=== PATIENT | female | born 1995 | race Caucasian/White ===

== ENCOUNTER 2016-11-03 14:23 | Outpatient (CLI) | payer BC ==
[2016-11-03] MEDS ORDERED: Acetaminophen 500 MG Tab PO ONE (16:55)
== END 2016-11-03 18:35 | disposition home or self-care (01) ==
LOC: MW.OBCHECK 14:23 → MW.OB 14:27 → MW.OBCHECK 18:35
PROVIDERS: ATTEND Obstetrics & Gynecology
DX: O36.8190 Decreased fetal movements, unspecified trimester, not applicable or unspecified (principal); R10.9 Unspecified abdominal pain; Z3A.00 Weeks of gestation of pregnancy not specified; Z37.9 Outcome of delivery, unspecified
CPT/HCPCS: 59025; 81003; A9270

== ENCOUNTER → 2016-11-09 | Outpatient (CLI) | payer BC | LOC: MW.CHOBGYN 15:15 | PROVIDERS: ATTEND Obstetrics & Gynecology | DX: O09.30 Supervision of pregnancy with insufficient antenatal care, unspecified trimester (principal) | CPT/HCPCS: 81003; 87081 ==

== ENCOUNTER 2016-11-10 21:57 | Outpatient (CLI) | payer BC | END 2016-11-11 00:46 | disposition home or self-care (01) | LOC: MW.OBCHECK 21:57 → MW.OB 22:05 → MW.OBCHECK 11-11 00:46 | PROVIDERS: ATTEND Obstetrics & Gynecology | DX: Z34.03 Encounter for supervision of normal first pregnancy, third trimester (principal); R03.0 Elevated blood-pressure reading, without diagnosis of hypertension; H53.8 Other visual disturbances; R11.2 Nausea with vomiting, unspecified; N94.89 Other specified conditions associated with female genital organs and menstrual cycle; Z3A.35 35 weeks gestation of pregnancy | CPT/HCPCS: 59025; 81003 ==

== ENCOUNTER → 2016-11-17 | Outpatient (CLI) | payer BC | LOC: MW.CHOBGYN 15:28 | PROVIDERS: ATTEND Nurse Practitioner Women's Health | DX: Z34.90 Encounter for supervision of normal pregnancy, unspecified, unspecified trimester (principal) | CPT/HCPCS: 81003 ==

== ENCOUNTER 2016-11-21 16:33 | Outpatient (CLI) | payer BC | END 2016-11-21 17:50 | disposition home or self-care (01) | LOC: MW.OBCHECK 16:33 → MW.OB 16:53 → MW.OBCHECK 17:50 | PROVIDERS: ATTEND Obstetrics & Gynecology | DX: Z34.90 Encounter for supervision of normal pregnancy, unspecified, unspecified trimester (principal) | CPT/HCPCS: 36415; 59025; 81003; 85025 ==

== ENCOUNTER → 2016-11-21 | Outpatient (CLI) | payer BC | END | disposition home or self-care (01) | LOC: MW.CHOBGYN 15:47 | PROVIDERS: ATTEND Obstetrics & Gynecology | DX: Z34.90 Encounter for supervision of normal pregnancy, unspecified, unspecified trimester (principal) | CPT/HCPCS: 81003 ==

== ENCOUNTER 2016-11-28 17:11 | Outpatient (CLI) | payer BC ==
[2016-11-28 18:12] LABS: CHLORIDE,CL 111 mmol/L (98-110); SODIUM,NA 137 mmol/L (136-146)
== END 2016-11-28 20:18 | disposition home or self-care (01) ==
LOC: MW.OBCHECK 17:11 → MW.OB 17:13 → MW.OBCHECK 20:18
PROVIDERS: ATTEND Obstetrics & Gynecology
DX: O16.9 Unspecified maternal hypertension, unspecified trimester (principal)
CPT/HCPCS: 36415; 59025; 80048; 80076; 81001; 85025

== ENCOUNTER 2016-12-01 16:50 | Inpatient (IN) | payer BC ==
[2016-12-01] MEDS ORDERED: Ampicillin 2 GM in Sodium Chloride 0.9% 100 ML IV ONE (17:22)
[2016-12-01] MEDS ORDERED: Methylergonovine 0.2 MG/1 ML Amp IM PRN (17:22)
[2016-12-01] MEDS ORDERED: Terbutaline 1 MG/ML SDV SUBCUT PRN (17:22)
[2016-12-01] MEDS ORDERED: Sodium Chloride 0.9% 10 ML Syringe FLUSH PRN (17:22)
[2016-12-01] MEDS ORDERED: Sodium Chloride 0.9% 2.5 ML Syringe FLUSH PRN (17:22)
[2016-12-01] MEDS ORDERED: Water For Irrigation,Sterile 1,000 ML Container IRR PRN (17:22)
[2016-12-01] MEDS ORDERED: Nalbuphine 10 MG/1 ML Vial IVPUSH PRN (17:22)
[2016-12-01] MEDS ORDERED: Carboprost Tromethamine 250 MCG/1 ML Amp IM PRN (17:22)
[2016-12-01] MEDS ORDERED: Misoprostol 200 MCG Tab PO PRN (17:22)
[2016-12-01] MEDS ORDERED: Butorphanol 1 MG/ML SDV IVPUSH PRN (17:22)
[2016-12-01] MEDS ORDERED: Misoprostol 25 MCG (1/4 of 100 MCG) Tab VAG PRN (17:22)
[2016-12-01] MEDS ORDERED: Lidocaine 1% 50 ML MDV INJECT PRN (17:22)
[2016-12-01] MEDS ORDERED: Oxytocin/Lactated Ringers 30 UNIT/500 ML BAG IV SCH (17:30)
[2016-12-01] MEDS: Lactated Ringers 1,000 ML IV SCH (18:08)
[2016-12-01] MEDS: Misoprostol 25 MCG (1/4 of 100 MCG) Tab PO SCH (18:22)
--- NOTE | 2016-12-01 19:01 | PCM.LDHP ---
L&D History of Present Illness - General Date of Service: 12/01/16 Admit Problem/Dx: Patient Status Order with Admit Dx/Problem 12/01/16 17:23 Patient Status [ADT] Routine Admission Diagnosis/Problem Admission Diagnosis/Problem 12/01/16 18:52 20 yo G1 at 39wks with an EDC of 12/08/2016, O+, RI, GBS pos. IOL due to elevated BP. 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: - Past Surgical History HEENT Surgical History: Reports: None Social & Family History - Family History Cardiac: Reports: Hypertension OBGYN: Reports: Other Endocrine/Metabolic Family History: diabetes, unsure of type - Tobacco Use Smoking Status *Q: Never Smoker Second Hand Smoke Exposure: No - Caffeine Use Caffeine Use: Reports: None - Recreational Drug Use Recreational Drug Use: No H&P Review of Systems - Review of Systems: Review Of Systems: See Below General: Reports: no symptoms HEENT: Reports: no symptoms Pulmonary: Reports: No Symptoms Cardiovascular: Reports: no symptoms Gastrointestinal: Reports: No symptoms Genitourinary: Reports: no symptoms Musculoskeletal: Reports: no symptoms Skin: Reports: no symptoms Psychiatric: Reports: no symptoms Neurological: Reports: No Symptoms Hematologic/Lymphatic: Reports: no symptoms Immunologic: Reports: no symptoms L&D Exam - Exam Exam: See Below - Vital Signs Weight: 104.326 kg - OB Specific movement: active Estimated Weight: 3900 - Exam General: alert, oriented, cooperative, mild distress HEENT: Hearing intact Lungs: Normal respiratory effort Abdomen: soft Rectal Exam: Deferred Genitourinary: Normal external exam Back Exam: full range of motion Skin: intact Psychiatric: alert, normal mood - Patient Data Lab Results last 24 hrs: Laboratory Results - last 24 hr 12/01/16 Range/Units 17:56 WBC 10.26 (4.0-11.0) K/uL RBC 4.57 (4.30-5.90) M/uL Hgb 11.1 L (12.0-16.0) g/dL Hct 34.8 L (36.0-46.0) % MCV 76.1 L (80.0-98.0) fL MCH 24.3 L (27.0-32.0) pg MCHC 31.9 (31.0-37.0) g/dL RDW Std Deviation 40.8 (28.0-62.0) fl RDW Coeff of Verito 15 (11.0-15.0) % Plt Count 262 (150-400) K/uL MPV 10.30 (7.40-12.00) fL Nucleated RBC % 0.0 /100WBC Nucleated RBCs # 0 K/uL Result Diagrams: 12/01/16 17:56 - Problem List (1) Supervision of normal IUP (intrauterine ) in primigravida SNOMED Code(s): 97792402, 268441952, 477179370, 842661635 ICD Code: Z34.00 - ENCNTR FOR SUPRVSN OF NORMAL FIRST , UNSP TRIMESTER Status: Acute Current Visit: Yes Qualifiers: Trimester: third trimester Qualified Code(s): Z34.03 - Encounter for supervision of normal first , third trimester (2) Gestational hypertension SNOMED Code(s): 84389983 ICD Code: O13.9 - GESTATIONAL HTN W/O SIGNIFICANT PROTEINURIA, UNSP TRIMESTER Status: Acute Priority: High Current Visit: Yes Qualifiers: Trimester: third trimester Qualified Code(s): O13.3 - Gestational [ -induced] hypertension without significant proteinuria, third trimester Problem List Initiated/Reviewed/Updated: Yes Orders Last 24hrs: Active Orders 24 hr Category Date Time Status Patient Status [ADT] Routine ADT 12/01/16 17:23 Active Communication Order [RC] ASDIRECTED Care 12/01/16 17:23 Active Communication Order [RC] ASDIRECTED Care 12/01/16 17:23 Active Communication Order [RC] ASDIRECTED Care 12/01/16 17:23 Active Heart Tones [RC] CONTINUOUS Care 12/01/16 17:23 Active Non Stress Test [RC] PER UNIT ROUTINE Care 12/01/16 17:23 Active May Shower [RC] ASDIRECTED Care 12/01/16 17:23 Active Notify Provider [RC] PRN Care 12/01/16 17:23 Active Notify Provider [RC] PRN Care 12/01/16 17:23 Active Notify Provider [RC] PRN Care 12/01/16 17:23 Active Notify Provider [RC] STAT Care 12/01/16 17:23 Active Oxygen Therapy [RC] ASDIRECTED Care 12/01/16 17:23 Active Up ad Katia [RC] ASDIRECTED Care 12/01/16 17:23 Active Vaginal Exam [RC] PRN Care 12/01/16 17:23 Active Vital Signs [RC] PER UNIT ROUTINE Care 12/01/16 17:23 Active Clear Liquid Diet [DIET] Diet 12/01/16 Dinner Active TYPE AND SCREEN [BBK] Routine Lab 12/01/16 17:56 Received Ampicillin 1 gm Med 12/01/16 22:00 Active Sodium Chloride 0.9% [Normal Saline] 50 ml IV Q4H Butorphanol [Stadol] Med 12/01/16 17:22 Active 1 mg IVPUSH Q1H PRN Carboprost Tromethamine [Hemabate DS] Med 12/01/16 17:22 Active 250 mcg IM ASDIRECTED PRN Lactated Ringers [Ringers, Lactated] 1,000 ml Med 12/01/16 17:30 Active IV ASDIRECTED Lidocaine 1% [Xylocaine 1%] Med 12/01/16 17:22 Active 50 ml INJECT .ONCE PRN Methylergonovine [Methergine] Med 12/01/16 17:22 Active 0.2 mg IM ASDIRECTED PRN Misoprostol [Cytotec] Med 12/01/16 17:22 Active 200 mcg PO .ONCE PRN Misoprostol [Cytotec] Med 12/01/16 17:30 Active 25 mcg PO Q4H Misoprostol [Cytotec] Med 12/01/16 17:22 Active 25 mcg VAG Q4H PRN Nalbuphine [Nubain] Med 12/01/16 17:22 Active 10 mg IVPUSH Q1H PRN Sodium Chloride 0.9% [Saline Flush] Med 12/01/16 17:22 Active 10 ml FLUSH ASDIRECTED PRN Sodium Chloride 0.9% [Saline Flush] Med 12/01/16 17:22 Active 2.5 ml FLUSH ASDIRECTED PRN Terbutaline [Brethine] Med 12/01/16 17:22 Active 0.25 mg SUBCUT ASDIRECTED PRN Water For Irrigation,Sterile [Sterile Water for Med 12/01/16 17:22 Active Irrigation] 1,000 ml IRR ASDIRECTED PRN Scalp Electrode [WOMSER] Per Unit Routine Oth 12/01/16 17:23 Ordered Medication Administration Instruction [OM.PC] Q3H Oth 12/01/16 17:30 Ordered Peripheral IV Insertion Adult [OM.PC] Routine Oth 12/01/16 17:23 Ordered Resuscitation Status Routine Resus Stat 12/01/16 17:22 Ordered Medication Orders Butorphanol Tartrate (Stadol) 1 mg IVPUSH Q1H PRN PRN Reason: Pain Carboprost Tromethamine (Hemabate Ds) 250 mcg IM ASDIRECTED PRN PRN Reason: Post Hemorrhage Lactated Ringer's (Ringers, Lactated) 1,000 mls @ 150 mls/hr IV ASDIRECTED [facility] Last Admin: 12/01/16 18:08 Dose: 150 mls/hr Ampicillin Sodium 1 gm/ Sodium (Chloride) 50 mls @ 100 mls/hr IV Q4H [facility] Lidocaine HCl (Xylocaine 1%) 50 ml INJECT .ONCE PRN PRN Reason: Laceration repair Methylergonovine Maleate (Methergine) 0.2 mg IM ASDIRECTED PRN PRN Reason: Post Hemorrhage Misoprostol (Cytotec) 200 mcg PO .ONCE PRN PRN Reason: Post Hemorrhage Misoprostol (Cytotec) 25 mcg PO Q4H [facility] Last Admin: 12/01/16 18:22 Dose: 25 mcg Misoprostol (Cytotec) 25 mcg VAG Q4H PRN PRN Reason: Cervical Ripening Stop: 12/02/16 21:23 Last Admin: 12/01/16 18:16 Dose: 25 mcg Nalbuphine HCl (Nubain) 10 mg IVPUSH Q1H PRN PRN Reason: Pain (severe 7-10) Stop: 12/01/16 19:23 Sodium Chloride (Saline Flush) 10 ml FLUSH ASDIRECTED PRN PRN Reason: Keep Vein Open Sodium Chloride (Saline Flush) 2.5 ml FLUSH ASDIRECTED PRN PRN Reason: Keep Vein Open Sterile Water (Sterile Water For Irrigation) 1,000 ml IRR ASDIRECTED PRN PRN Reason: delivery Terbutaline Sulfate (Brethine) 0.25 mg SUBCUT ASDIRECTED PRN PRN Reason: Tacysystole Assessment/Plan Comment:: A: 20yo G1 at 39wk EDC 12/08/2016. O+, IR, GBS pos. IOL for Elevated BP. P: Admit to L&D, cytotec, treat GBS with Amp., anticipate .
[2016-12-01] MEDS ORDERED: hydrOXYzine Pamoate 25 MG Cap PO PRN (19:02)
[2016-12-01] MEDS: Ampicillin 1 GM in Sodium Chloride 0.9% 50 ML IV SCH (22:11)
[2016-12-02] MEDS: Ampicillin 1 GM in Sodium Chloride 0.9% 50 ML IV SCH ×6 (02:11→22:12)
[2016-12-02] MEDS: Lactated Ringers 1,000 ML IV SCH ×3 (02:14→22:25)
[2016-12-02] MEDS ORDERED: Oxytocin/Lactated Ringers 30 UNIT/500 ML BAG ONE (04:57)
[2016-12-02] MEDS ORDERED: Oxytocin/Lactated Ringers 30 UNIT/500 ML BAG IV SCH ×2 (05:00→14:30)
[2016-12-02] MEDS ORDERED: Ropivacaine HCl/PF 100 ML ONE (20:27)
[2016-12-02] MEDS ORDERED: Ropivacaine 0.2% 2 MG/ML 20 ML SDV ONE (20:27)
[2016-12-02] MEDS ORDERED: fentaNYL 100 MCG/2 ML SDV ONE (20:27)
--- NOTE | 2016-12-02 21:29 | PCM.PREANE ---
Preanesthetic Assessment - Anesthesia/Transfusion/Family Hx Anesthesia History: No Prior Anesthesia Family History of Anesthesia Reaction: No Transfusion History: No Prior Transfusion(s) - Review of Systems General: No Symptoms Pulmonary: No Symptoms Cardiovascular: No Symptoms Gastrointestinal: No symptoms Neurological: No Symptoms Other: Reports: None - Physical Assessment NPO Status Date: 12/02/16 NPO Status Time: 21:22 (cl liquids) Height: 1.73 m Weight: 104.326 kg ASA Class: 2 Mental Status: Alert & Oriented x3 Airway Class: Mallampati = 3 Dentition: Reports: Normal Dentition Thyro-Mental Finger Breadths: 3 Mouth Opening Finger Breadths: 2 ROM/Head Extension: Full Lungs: Clear to auscultation, Normal respiratory effort Cardiovascular: Regular Rate, Regular Rhythm - Lab Values: Laboratory Last Values WBC 10.26 K/uL (4.0-11.0) 12/01/16 17:56 RBC 4.57 M/uL (4.30-5.90) 12/01/16 17:56 Hgb 11.1 g/dL (12.0-16.0) L 12/01/16 17:56 Hct 34.8 % (36.0-46.0) L 12/01/16 17:56 MCV 76.1 fL (80.0-98.0) L 12/01/16 17:56 MCH 24.3 pg (27.0-32.0) L 12/01/16 17:56 MCHC 31.9 g/dL (31.0-37.0) 12/01/16 17:56 RDW Std Deviation 40.8 fl (28.0-62.0) 12/01/16 17:56 RDW Coeff of Verito 15 % (11.0-15.0) 12/01/16 17:56 Plt Count 262 K/uL (150-400) 12/01/16 17:56 MPV 10.30 fL (7.40-12.00) 12/01/16 17:56 Nucleated RBC % 0.0 /100WBC 12/01/16 17:56 Nucleated RBCs # 0 K/uL 12/01/16 17:56 Blood Type O POSITIVE 12/01/16 17:56 Antibody Screen NEGATIVE 12/01/16 17:56 - Allergies Allergies/Adverse Reactions: Allergies Allergy/AdvReac Type Severity Reaction Status Date / Time No Known Allergies Allergy Verified 11/03/16 16:54 - Blood Blood Available: Yes Product(s) Available: PRBC - Acknowledgements Anesthesia Type Planned: Epidural Pt an Appropriate Candidate for the Planned Anesthesia: Yes Alternatives and Risks of Anesthesia Discussed w Pt/Guardian: Yes Pt/Guardian Understands and Agrees with Anesthesia Plan: Yes PreAnesthesia Questionnaire HEENT History: Reports: Other (see below) Other HEENT History: wears glasses Cardiovascular History: Reports: Hypertension (gestational hypertension) 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: - Past Surgical History HEENT Surgical History: Reports: None - SUBSTANCE USE Smoking Status *Q: Never Smoker Second Hand Smoke Exposure: No Recreational Drug Use History: No - CURRENT (IN HOUSE) MEDS Current Meds: Current Medications Butorphanol Tartrate (Stadol) 1 mg IVPUSH Q1H PRN PRN Reason: Pain Carboprost Tromethamine (Hemabate Ds) 250 mcg IM ASDIRECTED PRN PRN Reason: Post Hemorrhage Hydroxyzine Pamoate (Vistaril) 50 mg PO BEDTIME PRN PRN Reason: Sleep Lactated Ringer's (Ringers, Lactated) 1,000 mls @ 150 mls/hr IV ASDIRECTED [facility] TO [facility] Last Admin: 12/02/16 19:56 Dose: 150 mls/hr Ampicillin Sodium 1 gm/ Sodium (Chloride) 50 mls @ 100 mls/hr IV Q4H [facility] Last Admin: 12/02/16 18:15 Dose: 100 mls/hr Oxytocin/Lactated Ringer's (Pitocin In Lr 30 Units/500 Ml) 30 unit in 500 mls @ 2 mls/hr IV TITRATE JILL; 2 MUNITS/MIN PRN Reason: Protocol Last Titration: 12/02/16 19:58 Dose: 16 munits/min, 16 mls/hr Lidocaine HCl (Xylocaine 1%) 50 ml INJECT .ONCE PRN PRN Reason: Laceration repair Methylergonovine Maleate (Methergine) 0.2 mg IM ASDIRECTED PRN PRN Reason: Post Hemorrhage Misoprostol (Cytotec) 200 mcg PO .ONCE PRN PRN Reason: Post Hemorrhage Misoprostol (Cytotec) 25 mcg PO Q4H [facility] Last Admin: 12/01/16 18:22 Dose: 25 mcg Misoprostol (Cytotec) 25 mcg VAG Q4H PRN PRN Reason: Cervical Ripening Stop: 12/02/16 21:23 Last Admin: 12/01/16 18:16 Dose: 25 mcg Sodium Chloride (Saline Flush) 10 ml FLUSH ASDIRECTED PRN PRN Reason: Keep Vein Open Sodium Chloride (Saline Flush) 2.5 ml FLUSH ASDIRECTED PRN PRN Reason: Keep Vein Open Sterile Water (Sterile Water For Irrigation) 1,000 ml IRR ASDIRECTED PRN PRN Reason: delivery Terbutaline Sulfate (Brethine) 0.25 mg SUBCUT ASDIRECTED PRN PRN Reason: Tacysystole Discontinued Medications Fentanyl (Sublimaze) Confirm Administered Dose 300 mcg .ROUTE .STK-MED ONE Stop: 12/02/16 20:28 Ampicillin Sodium 2 gm/ Sodium (Chloride) 100 mls @ 200 mls/hr IV ONETIME ONE Stop: 12/01/16 17:51 Last Admin: 12/01/16 18:09 Dose: 200 mls/hr Oxytocin/Lactated Ringer's (Pitocin In Lr 30 Units/500 Ml) 30 unit in 500 mls @ 999 mls/hr IV TITRATE JILL PRN Reason: 999 MUNITS/MIN Stop: 12/01/16 18:01 Oxytocin/Lactated Ringer's (Pitocin In Lr 30 Units/500 Ml) 30 unit in 500 mls @ 2 mls/hr IV TITRATE JILL; 2 MUNITS/MIN PRN Reason: Protocol Last Titration: 12/02/16 10:45 Dose: 0 munits/min, 0 mls/hr Oxytocin/Lactated Ringer's (Pitocin In Lr 30 Units/500 Ml) Confirm Administered Dose 30 unit in 500 mls @ as directed .ROUTE .STK-MED ONE Stop: 12/02/16 04:58 Ropivacaine (Naropin 0.2%) Confirm Administered Dose 100 mls @ as directed .ROUTE .STK-MED ONE Stop: 12/02/16 20:28 Nalbuphine HCl (Nubain) 10 mg IVPUSH Q1H PRN PRN Reason: Pain (severe 7-10) Stop: 12/01/16 19:23 Ropivacaine (Naropin 0.2%) Confirm Administered Dose 20 ml .ROUTE .STK-MED ONE Stop: 12/02/16 20:28 Preanesthetic Assessment - PHYSICAL ASSESSMENT Height: 1.73 m Weight: 104.326 kg - LAB Values: Laboratory Last Values WBC 10.26 K/uL (4.0-11.0) 12/01/16 17:56 RBC 4.57 M/uL (4.30-5.90) 12/01/16 17:56 Hgb 11.1 g/dL (12.0-16.0) L 12/01/16 17:56 Hct 34.8 % (36.0-46.0) L 12/01/16 17:56 MCV 76.1 fL (80.0-98.0) L 12/01/16 17:56 MCH 24.3 pg (27.0-32.0) L 12/01/16 17:56 MCHC 31.9 g/dL (31.0-37.0) 12/01/16 17:56 RDW Std Deviation 40.8 fl (28.0-62.0) 12/01/16 17:56 RDW Coeff of Verito 15 % (11.0-15.0) 12/01/16 17:56 Plt Count 262 K/uL (150-400) 12/01/16 17:56 MPV 10.30 fL (7.40-12.00) 12/01/16 17:56 Nucleated RBC % 0.0 /100WBC 12/01/16 17:56 Nucleated RBCs # 0 K/uL 12/01/16 17:56 Blood Type O POSITIVE 12/01/16 17:56 Antibody Screen NEGATIVE 12/01/16 17:56 - ALLERGIES Allergies/Adverse Reactions: Allergies Allergy/AdvReac Type Severity Reaction Status Date / Time No Known Allergies Allergy Verified 11/03/16 16:54 - Free Text/Narrative Note: Labor Analgesia/Epidural Procedure start date: 12/02/16 time: 2033 Attending provider aware Chart reviewed Permit signed Labs reviewed VS/ FHR reviewed Pt identified/ID band Pt assessed Risks/Benefits discussed and accepted Monitors in place (BP, HR, SPO2) Patient, Site, Procedure Verification, Pause. Pain "7/10" Fluid bolus infused (fluid type and amount): 1000 ml LR Position: Sitting @ 2038 Prep: Betadine X 3 Alcohol X 3 Other: Sterile Drape Intradermal Wheal: 3 ml 1% Lidocaine Regional placement level: L3-4 Needle: 17 g Tuohy Approach: Midline Technique: TAYLOR glass syringe with 3 ml Sterile water TAYLOR needle depth: 6 cm Paresthesia: None Fluid Obtained: None Catheter insertion time: 2043 Catheter depth at skin: 20 cm Test Dose Time: 2043 RX: 3 ml 1.5% lidocaine with 1:200,000 epi Response: Negative Loading dose Time: 0121-1710 RX: 100 mcg fentanyl followed by 5 ml 0.2% ropivacaine in divided doses over 10 minutes Pt position: semi fowlers with JULIENNE Continuous infusion Start Time: 2099 RX: 100 ml 0.2% ropivacaine with 200 mcg fentanyl added [2mcg/ml] Continuous infusion rate: 8 ml/hr 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 ) Procedure end date: 12/02/16 time: 2139
[2016-12-03] MEDS: Ampicillin 1 GM in Sodium Chloride 0.9% 50 ML IV SCH ×4 (02:29→15:54)
[2016-12-03] MEDS ORDERED: Ropivacaine HCl/PF 100 ML ONE (09:19)
[2016-12-03] MEDS ORDERED: fentaNYL 100 MCG/2 ML SDV ONE (09:19)
--- NOTE | 2016-12-03 09:38 | PCM.SN ---
- Free Text/Narrative Note: Contacted for replacement of epidural infusion. 100 ml 0.2% ropicavaine with 200 mcg fentanyl [2mcg/ml] added replaced and rate continued as before. Pt reports being comfortable with contractions.
--- NOTE | 2016-12-03 15:01 | PCM.SN ---
- Free Text/Narrative Note: Pt has been here for induction for several hours. Epidural placement when patient was dilated to 3 cm. Pt is now dilated further and reporting pain to right lower quadrant and significant increase in rectal pressure. States "I feel like I have to poop myself". Nurse evaluating and patient now dilated to 8 cm with change in station. Epidural rate increased to 10 ml/hr after KILNMAN bolus used. VSS.
[2016-12-03] MEDS: Lactated Ringers 1,000 ML IV SCH (15:53)
[2016-12-03] MEDS ORDERED: Witch Hazel Medicated Pads 40/Jar TOP PRN (18:47)
[2016-12-03] MEDS ORDERED: Acetaminophen 500 MG Tab PO PRN ×2 (18:47)
[2016-12-03] MEDS ORDERED: Bisacodyl 10 MG Supp RECTAL PRN (18:47)
[2016-12-03] MEDS ORDERED: Ibuprofen 400 MG Tab PO PRN (18:47)
[2016-12-03] MEDS ORDERED: Docusate Sodium 100 MG Cap PO PRN (18:47)
[2016-12-03] MEDS ORDERED: Lanolin 100% Cream 7 GM Tube TOP PRN (18:47)
[2016-12-03] MEDS ORDERED: Benzocaine/Menthol 20%-0.5% Spray 78 GM Cannister TOP PRN (18:47)
--- NOTE | 2016-12-03 18:57 | PCM.DEL ---
L & D Note - General Info Date of Service: 12/03/16 Mother's Due Date: 12/08/16 - Delivery Note Cervical Ripening Method: Misoprostil, Oxytocin Delivery Outcome: Livebirth Infant Delivery Method: Spontaneous Vaginal Delivery Presentation: Vertex Nuchal cord: none Anesthesia Type: Epidural Amniotic Fluid Description: Clear Episiotomy Type: None Laceration: 2nd degree Suture type: vicryl Suture size: 3-0 Placenta: intact, spontaneous Cord: 3 vessels Estimated blood loss: 200 Resuscitation needed: No : stimulated Score 1 min: 7 Score 5 min: 8 Post Delivery Events: Other (see below) (Elevated blood pressure) Second Stage Interventions: Reports: Pushing Effectively Delivery Comments (Free Text/Narrative):: of viable male over intact perineum. Head delivered, shoulders and body followed easily. Infant to mothers abdomen with eval by RN at . Delayed cord clamping. Pitocin to IVF. Cord clamped and cut by FOB. Cord blood collected. Placenta delivered grossly intact. Inspection noted 2nd degree lac with repair with 3-0 calderno in usual manor. EBL 200cc, APGARS 7/8, Wt: 7lb 5oz. Mother and infant left in stable condition for recovery. Induction Criteria - Stauffer Score Stauffer Score Dilation: 1-2 cm Stauffer Score Effacement: 40-50% Stauffer Score Infant's Station: -3 Stauffer Score Consistency: Medium Stauffer Score Cervix Position: Anterior Stauffer Score Total: 5 Stauffer Score Presenting Part: Reports: Cephalic - Induction Gestational Age >/= 39 wks: No Medical indication: Elevated blood pressure in third trimester Estimated pelvis: Reports: Adequate Reassuring monitoring strip: Yes Absence of tachy systole: Yes - General Info Date of Service: 12/03/16 Admission Dx/Problem (Free Text): Patient Status Order with Admit Dx/Problem 12/01/16 17:23 Patient Status [ADT] Routine Admission Diagnosis/Problem Admission Diagnosis/Problem 12/01/16 18:52 20 yo G1 at 39wks with an EDC of 12/08/2016, O+, RI, GBS pos. IOL due to elevated BP. Functional Status: Reports: pain controlled - Review of Systems General: Reports: No Symptoms HEENT: Reports: no symptoms Pulmonary: Reports: no symptoms Cardiovascular: Reports: No Symptoms Gastrointestinal: Reports: No symptoms Genitourinary: Reports: no symptoms Musculoskeletal: Reports: no symptoms Skin: Reports: no symptoms Neurological: Reports: No Symptoms Psychiatric: Reports: no symptoms - Patient Data Weight - most recent: 104.326 kg Med Orders - Current: Current Medications Acetaminophen (Tylenol Extra Strength) 500 mg PO Q4H PRN PRN Reason: Pain Acetaminophen (Tylenol Extra Strength) 1,000 mg PO Q4H PRN PRN Reason: Pain Benzocaine/Menthol (Dermoplast Pain Relief 20%-0.5% Willard) 78 gm TOP ASDIRECTED PRN PRN Reason: Perineal Comfort Measure Bisacodyl (Dulcolax) 10 mg RECTAL .ONCE PRN PRN Reason: Constipation Docusate Sodium (Colace) 100 mg PO BID PRN PRN Reason: Constipation Emollient Ointment (Lansinoh Hpa) 0 gm TOP ASDIRECTED PRN PRN Reason: Sore Nipples Ibuprofen (Motrin) 400 mg PO Q4H PRN PRN Reason: Pain Ibuprofen (Motrin) 800 mg PO Q6H PRN PRN Reason: Pain Oxycodone HCl (Oxycodone) 5 mg PO Q2H PRN PRN Reason: Pain Witch Naila (Tucks) 1 pad TOP ASDIRECTED PRN PRN Reason: comfort care Discontinued Medications Butorphanol Tartrate (Stadol) 1 mg IVPUSH Q1H PRN PRN Reason: Pain Carboprost Tromethamine (Hemabate Ds) 250 mcg IM ASDIRECTED PRN PRN Reason: Post Hemorrhage Fentanyl (Sublimaze) Confirm Administered Dose 300 mcg .ROUTE .STK-MED ONE Stop: 12/02/16 20:28 Fentanyl (Sublimaze) Confirm Administered Dose 200 mcg .ROUTE .STK-MED ONE Stop: 12/03/16 09:20 Hydroxyzine Pamoate (Vistaril) 50 mg PO BEDTIME PRN PRN Reason: Sleep Ampicillin Sodium 2 gm/ Sodium (Chloride) 100 mls @ 200 mls/hr IV ONETIME ONE Stop: 12/01/16 17:51 Last Admin: 12/01/16 18:09 Dose: 200 mls/hr Lactated Ringer's (Ringers, Lactated) 1,000 mls @ 150 mls/hr IV ASDIRECTED JILL Last Admin: 12/03/16 15:53 Dose: 150 mls/hr Oxytocin/Lactated Ringer's (Pitocin In Lr 30 Units/500 Ml) 30 unit in 500 mls @ 999 mls/hr IV TITRATE JILL PRN Reason: 999 MUNITS/MIN Stop: 12/01/16 18:01 Ampicillin Sodium 1 gm/ Sodium (Chloride) 50 mls @ 100 mls/hr IV Q4H J[facility] Last Admin: 12/03/16 15:54 Dose: 100 mls/hr Oxytocin/Lactated Ringer's (Pitocin In Lr 30 Units/500 Ml) 30 unit in 500 mls @ 2 mls/hr IV TITRATE JILL; 2 MUNITS/MIN PRN Reason: Protocol Last Titration: 12/02/16 10:45 Dose: 0 munits/min, 0 mls/hr Oxytocin/Lactated Ringer's (Pitocin In Lr 30 Units/500 Ml) Confirm Administered Dose 30 unit in 500 mls @ as directed .ROUTE .STK-MED ONE Stop: 12/02/16 04:58 Oxytocin/Lactated Ringer's (Pitocin In Lr 30 Units/500 Ml) 30 unit in 500 mls @ 2 mls/hr IV TITRATE JILL; 2 MUNITS/MIN PRN Reason: Protocol Last Titration: 12/03/16 07:24 Dose: 6 munits/min, 6 mls/hr Ropivacaine (Naropin 0.2%) Confirm Administered Dose 100 mls @ as directed .ROUTE .STK-MED ONE Stop: 12/02/16 20:28 Ropivacaine (Naropin 0.2%) Confirm Administered Dose 100 mls @ as directed .ROUTE .ST-MED ONE Stop: 12/03/16 09:20 Lidocaine HCl (Xylocaine 1%) 50 ml INJECT .ONCE PRN PRN Reason: Laceration repair Methylergonovine Maleate (Methergine) 0.2 mg IM ASDIRECTED PRN PRN Reason: Post Hemorrhage Misoprostol (Cytotec) 200 mcg PO .ONCE PRN PRN Reason: Post Hemorrhage Misoprostol (Cytotec) 25 mcg PO Q4H [facility] Last Admin: 12/01/16 18:22 Dose: 25 mcg Misoprostol (Cytotec) 25 mcg VAG Q4H PRN PRN Reason: Cervical Ripening Stop: 12/02/16 21:23 Last Admin: 12/01/16 18:16 Dose: 25 mcg Nalbuphine HCl (Nubain) 10 mg IVPUSH Q1H PRN PRN Reason: Pain (severe 7-10) Stop: 12/01/16 19:23 Ropivacaine (Naropin 0.2%) Confirm Administered Dose 20 ml .ROUTE .STK-MED ONE Stop: 12/02/16 20:28 Sodium Chloride (Saline Flush) 10 ml FLUSH ASDIRECTED PRN PRN Reason: Keep Vein Open Sodium Chloride (Saline Flush) 2.5 ml FLUSH ASDIRECTED PRN PRN Reason: Keep Vein Open Sterile Water (Sterile Water For Irrigation) 1,000 ml IRR ASDIRECTED PRN PRN Reason: delivery Terbutaline Sulfate (Brethine) 0.25 mg SUBCUT ASDIRECTED PRN PRN Reason: Tacysystole - Exam General: alert, oriented, cooperative, no acute distress Lungs: Normal respiratory effort Abdomen: soft, no tenderness, no distension (Female) Exam: Normal bimanual exam, Vaginal bleeding Back Exam: full range of motion Extremities: no edema Skin: warm, dry, intact Wound/Incisions: healing well Neurological: no new focal deficit Psy/Mental Status: alert, normal affect, normal mood - Problem List & Annotations (1) Supervision of normal IUP (intrauterine ) in primigravida SNOMED Code(s): 52298799, 515482037, 271319550, 139579478 Code(s): Z34.00 - ENCNTR FOR SUPRVSN OF NORMAL FIRST , UNSP TRIMESTER Status: Acute Current Visit: Yes Qualifiers: Trimester: third trimester Qualified Code(s): Z34.03 - Encounter for supervision of normal first , third trimester (2) Gestational hypertension SNOMED Code(s): 42154069 Code(s): O13.9 - GESTATIONAL HTN W/O SIGNIFICANT PROTEINURIA, UNSP TRIMESTER Status: Acute Priority: High Current Visit: Yes Qualifiers: Trimester: third trimester Qualified Code(s): O13.3 - Gestational [ -induced] hypertension without significant proteinuria, third trimester (3) (normal spontaneous vaginal delivery) SNOMED Code(s): 15528154 Code(s): O80 - ENCOUNTER FOR FULL-TERM UNCOMPLICATED DELIVERY Status: Acute Priority: Medium Current Visit: Yes - Problem List Review Problem List Initiated/Reviewed/Updated: Yes - My Orders Last 24 Hours: My Active Orders 12/03/16 18:47 May Shower [RC] ASDIRECTED Up ad Katia [RC] ASDIRECTED Vital Signs [RC] PER UNIT ROUTINE Acetaminophen [Tylenol Extra Strength] 1,000 mg PO Q4H PRN Acetaminophen [Tylenol Extra Strength] 500 mg PO Q4H PRN Benzocaine/Menthol [Dermoplast Pain Relief 20%-0.5% Willard] 78 gm TOP ASDIRECTED PRN Bisacodyl [Dulcolax] 10 mg RECTAL .ONCE PRN Docusate Sodium [Colace] 100 mg PO BID PRN Ibuprofen [Motrin] 400 mg PO Q4H PRN Ibuprofen [Motrin] 800 mg PO Q6H PRN Lanolin [Lansinoh HPA] See Dose Instructions TOP ASDIRECTED PRN Witch Naila [Tucks] 1 pad TOP ASDIRECTED PRN oxyCODONE 5 mg PO Q2H PRN Assess Lochia [WOMSER] Per Unit Routine Assess Uterine Involution [WOMSER] Per Unit Routine Peripheral IV Discontinue [OM.PC] Routine Resuscitation Status Routine 12/03/16 18:50 Patient Status [ADT] Routine 12/04/16 Breakfast Regular Diet [DIET] - Assessment Assessment:: of viable male. EBL 200cc, 2nd degree lac with repair, APGARS 7/8, Wt: 7lb 5oz - Plan Plan:: A: 20yo G1 at 39wk EDC 12/08/2016. O+, IR, GBS pos. IOL for Elevated BP. P: Admit to L&D, cytotec, treat GBS with Amp., anticipate . Post P: routine pp plan of care.
[2016-12-03] MEDS: oxyCODONE 5 MG Tab PO PRN (21:38)
[2016-12-04] MEDS: oxyCODONE 5 MG Tab PO PRN ×3 (02:11→19:55)
[2016-12-04] MEDS: Ibuprofen 800 MG Tab PO PRN ×3 (02:11→19:56)
[2016-12-04] MEDS: Misoprostol 25 MCG (1/4 of 100 MCG) Tab PO SCH ×2 (08:33→08:34)
[2016-12-04] MEDS: Ampicillin 1 GM in Sodium Chloride 0.9% 50 ML IV SCH (08:34)
--- NOTE | 2016-12-04 11:01 | PCM.DCSUM1 ---
Discharge Summary - Hospital Course Free Text/Narrative:: Discharge home with . Follow up in 6 weeks for post visit or sooner if needed. - Discharge Data Discharge Date: 12/04/16 Discharge Disposition: Home, Self-Care 01 Condition: Good - Discharge Diagnosis/Problem(s) (1) Supervision of normal IUP (intrauterine ) in primigravida SNOMED Code(s): 44470809, 520883789, 115667098, 677739863 ICD Code: Z34.00 - ENCNTR FOR SUPRVSN OF NORMAL FIRST , UNSP TRIMESTER Status: Acute Current Visit: Yes Qualifiers: Trimester: third trimester Qualified Code(s): Z34.03 - Encounter for supervision of normal first , third trimester (2) Gestational hypertension SNOMED Code(s): 46956313 ICD Code: O13.9 - GESTATIONAL HTN W/O SIGNIFICANT PROTEINURIA, UNSP TRIMESTER Status: Acute Priority: High Current Visit: Yes Qualifiers: Trimester: third trimester Qualified Code(s): O13.3 - Gestational [ -induced] hypertension without significant proteinuria, third trimester (3) (normal spontaneous vaginal delivery) SNOMED Code(s): 19023515 ICD Code: O80 - ENCOUNTER FOR FULL-TERM UNCOMPLICATED DELIVERY Status: Acute Priority: Medium Current Visit: Yes - Patient Instructions Diet: Usual Diet as Tolerated Activity: As Tolerated, Rest and Relax Today Driving: Do Not Drive (for a few days) Showering/Bathing: May Shower Notify Provider of: Fever, Increased Pain, Swelling and Redness, Nausea and/or Vomiting - Discharge Plan Referrals: [facility] [Outside] Jose Valenzuela MD [Primary Care Provider] - 01/13/17 9:30 am - General Info Date of Service: 12/04/16 Functional Status: Reports: pain controlled, tolerating diet, ambulating, urinating - Review of Systems General: Reports: No Symptoms HEENT: Reports: no symptoms Pulmonary: Reports: no symptoms Cardiovascular: Reports: No Symptoms Gastrointestinal: Reports: No symptoms Genitourinary: Reports: no symptoms Musculoskeletal: Reports: no symptoms Skin: Reports: no symptoms Neurological: Reports: No Symptoms Psychiatric: Reports: no symptoms - Patient Data Vitals - Most Recent: Last Vital Signs Temp 36.6 C 12/04/16 07:37 Pulse 80 12/04/16 07:37 Resp 14 12/04/16 07:37 BP 122/80 12/04/16 07:37 Pulse Ox 97 12/04/16 07:37 Weight - Most Recent: 104.326 kg Med Orders - Current: Current Medications Acetaminophen (Tylenol Extra Strength) 500 mg PO Q4H PRN PRN Reason: Pain Acetaminophen (Tylenol Extra Strength) 1,000 mg PO Q4H PRN PRN Reason: Pain Benzocaine/Menthol (Dermoplast Pain Relief 20%-0.5% [place]) 78 gm TOP ASDIRECTED PRN PRN Reason: Perineal Comfort Measure Last Admin: 12/03/16 23:35 Dose: 1 can Bisacodyl (Dulcolax) 10 mg RECTAL .ONCE PRN PRN Reason: Constipation Docusate Sodium (Colace) 100 mg PO BID PRN PRN Reason: Constipation Emollient Ointment (Lansinoh Hpa) 0 gm TOP ASDIRECTED PRN PRN Reason: Sore Nipples Last Admin: 12/03/16 23:32 Dose: 7 gm Ibuprofen (Motrin) 400 mg PO Q4H PRN PRN Reason: Pain Ibuprofen (Motrin) 800 mg PO Q6H PRN PRN Reason: Pain Last Admin: 12/04/16 10:35 Dose: 800 mg Oxycodone HCl (Oxycodone) 5 mg PO Q2H PRN PRN Reason: Pain Last Admin: 12/04/16 10:35 Dose: 5 mg Witch Naila (Tucks) 1 pad TOP ASDIRECTED PRN PRN Reason: comfort care Last Admin: 12/03/16 23:33 Dose: 1 pack Discontinued Medications Butorphanol Tartrate (Stadol) 1 mg IVPUSH Q1H PRN PRN Reason: Pain Carboprost Tromethamine (Hemabate Ds) 250 mcg IM ASDIRECTED PRN PRN Reason: Post Hemorrhage Fentanyl (Sublimaze) Confirm Administered Dose 300 mcg .ROUTE .STK-MED ONE Stop: 12/02/16 20:28 Fentanyl (Sublimaze) Confirm Administered Dose 200 mcg .ROUTE .STK-MED ONE Stop: 12/03/16 09:20 Last Admin: 12/04/16 08:33 Dose: Not Given Hydroxyzine Pamoate (Vistaril) 50 mg PO BEDTIME PRN PRN Reason: Sleep Ampicillin Sodium 2 gm/ Sodium (Chloride) 100 mls @ 200 mls/hr IV ONETIME ONE Stop: 12/01/16 17:51 Last Admin: 12/01/16 18:09 Dose: 200 mls/hr Lactated Ringer's (Ringers, Lactated) 1,000 mls @ 150 mls/hr IV ASDIRECTED JILL Last Admin: 12/03/16 15:53 Dose: 150 mls/hr Oxytocin/Lactated Ringer's (Pitocin In Lr 30 Units/500 Ml) 30 unit in 500 mls @ 999 mls/hr IV TITRATE JILL PRN Reason: 999 MUNITS/MIN Stop: 12/01/16 18:01 Ampicillin Sodium 1 gm/ Sodium (Chloride) 50 mls @ 100 mls/hr IV Q4H JILL Last Admin: 12/04/16 08:34 Dose: Not Given Oxytocin/Lactated Ringer's (Pitocin In Lr 30 Units/500 Ml) 30 unit in 500 mls @ 2 mls/hr IV TITRATE JILL; 2 MUNITS/MIN PRN Reason: Protocol Last Titration: 12/02/16 10:45 Dose: 0 munits/min, 0 mls/hr Oxytocin/Lactated Ringer's (Pitocin In Lr 30 Units/500 Ml) Confirm Administered Dose 30 unit in 500 mls @ as directed .ROUTE .[facility] ONE Stop: 12/02/16 04:58 Last Admin: 12/03/16 21:25 Dose: 30 unit Oxytocin/Lactated Ringer's (Pitocin In Lr 30 Units/500 Ml) 30 unit in 500 mls @ 2 mls/hr IV TITRATE JILL; 2 MUNITS/MIN PRN Reason: Protocol Last Titration: 12/03/16 07:24 Dose: 6 munits/min, 6 mls/hr Ropivacaine (Naropin 0.2%) Confirm Administered Dose 100 mls @ as directed .ROUTE .[facility]-MED ONE Stop: 12/02/16 20:28 Ropivacaine (Naropin 0.2%) Confirm Administered Dose 100 mls @ as [facility] Stop: 12/03/16 09:20 Last Admin: 12/04/16 08:33 Dose: Not Given Lidocaine HCl (Xylocaine 1%) 50 ml INJECT .ONCE PRN PRN Reason: Laceration repair Methylergonovine Maleate (Methergine) 0.2 mg IM ASDIRECTED PRN PRN Reason: Post Hemorrhage Misoprostol (Cytotec) 200 mcg PO .ONCE PRN PRN Reason: Post Hemorrhage Misoprostol (Cytotec) 25 mcg PO Q4H JILL Last Admin: 12/04/16 08:34 Dose: Not Given Misoprostol (Cytotec) 25 mcg VAG Q4H PRN PRN Reason: Cervical Ripening Stop: 12/02/16 21:23 Last Admin: 12/01/16 18:16 Dose: 25 mcg Nalbuphine HCl (Nubain) 10 mg IVPUSH Q1H PRN PRN Reason: Pain (severe 7-10) Stop: 12/01/16 19:23 Ropivacaine (Naropin 0.2%) Confirm Administered Dose 20 ml .ROUTE .STK-MED ONE Stop: 12/02/16 20:28 Sodium Chloride (Saline Flush) 10 ml FLUSH ASDIRECTED PRN PRN Reason: Keep Vein Open Sodium Chloride (Saline Flush) 2.5 ml FLUSH ASDIRECTED PRN PRN Reason: Keep Vein Open Sterile Water (Sterile Water For Irrigation) 1,000 ml IRR ASDIRECTED PRN PRN Reason: delivery Terbutaline Sulfate (Brethine) 0.25 mg SUBCUT ASDIRECTED PRN PRN Reason: Tacysystole - Exam General: Reports: alert, oriented, cooperative, no acute distress Lungs: Reports: Clear to auscultation, Normal respiratory effort Cardiovascular: Reports: Regular Rate, Regular Rhythm Abdomen: Reports: soft, no tenderness, no distension (Female) Exam: Vaginal bleeding Rectal (Female) Exam: Deferred Back Exam: Reports: full range of motion Extremities: Reports: no edema Skin: Reports: warm, dry, intact Wound/Incisions: Reports: healing well Neurological: Reports: no new focal deficit Psy/Mental Status: Reports: alert, normal affect, normal mood *Q Meaningful Use (DIS) - VTE *Q VTE Criteria *Q: - Stroke *Q Stroke Criteria *Q: - AMI *Q AMI Criteria *Q:
--- NOTE | 2016-12-04 14:46 | PCM48HPAN ---
Post Anesthesia Note - EVALUATION WITHIN 48HRS OF ANESTHETIC Vital Signs in Normal Range: Yes Patient Participated in Evaluation: Yes Respiratory Function Stable: Yes Airway Patent: Yes Cardiovascular Function Stable: Yes Hydration Status Stable: Yes Pain Control Satisfactory: Yes Nausea and Vomiting Control Satisfactory: Yes Mental Status Recovered: Yes - COMMENTS/OBSERVATIONS Free Text/Narrative:: Full return of motor movement and sensation to lower extremities. No problems reported.
[2016-12-04 19:58] VITALS: BP 129/75
== END 2016-12-04 20:40 | disposition home or self-care (01) | DRG 560 ==
LOC: MW.OBCHECK 16:50 → MW.OB 16:51 → MW.OBCHECK 17:35 → OBSVTOIN 18:19 → INTOOBSV 18:19 → OBSVTOIN 12-03 18:19 → MW.OB 12-03 23:22 → UNDODISIN 12-04 20:40
PROVIDERS: ADMIT Obstetrics & Gynecology; ATTEND Obstetrics & Gynecology
PROC: 10E0XZZ Delivery of Products of Conception, External Approach (ICD-10-PCS; principal; 2016-12-01)
PROC: 3E0P7GC Introduction of Other Therapeutic Substance into Female Reproductive, Via Natural or Artificial Opening (ICD-10-PCS; 2016-12-01)
PROC: 0KQM0ZZ Repair Perineum Muscle, Open Approach (ICD-10-PCS; 2016-12-01)
DX: O13.4 Gestational [pregnancy-induced] hypertension without significant proteinuria, complicating childbirth (principal); O70.1 Second degree perineal laceration during delivery; Z3A.39 39 weeks gestation of pregnancy; Z37.0 Single live birth
CPT/HCPCS: 01967; 59409; 85027; 86850; 86900; 86901; A9270-GY; J0290; J2795; J3010; J7030; J7050; J7120

== ENCOUNTER 2019-08-13 14:47 | Inpatient (IN) | payer BC ==
[2019-08-13 16:26] LABS: BLOOD UREA NITROGEN,BUN 9 mg/dL (7.0-18.0); CARBON DIOXIDE,CO2 19.1 mmol/L (21.0-32.0); CHLORIDE,CL 106 mmol/L (98-107); GLUCOSE RANDOM 107 mg/dL (74-106); POTASSIUM,K 4.2 mmol/L (3.5-5.1); SODIUM,NA 138 mmol/L (136-145)
[2019-08-13] MEDS ORDERED: Ondansetron 4 MG/2 ML SDV IVPUSH PRN (20:44)
[2019-08-13] MEDS ORDERED: Carboprost Tromethamine 250 MCG/1 ML Amp IM PRN (20:44)
[2019-08-13] MEDS ORDERED: Sodium Chloride 0.9% 10 ML Syringe FLUSH PRN (20:44)
[2019-08-13] MEDS ORDERED: Lidocaine 1% 50 ML MDV INJECT PRN (20:44)
[2019-08-13] MEDS ORDERED: Misoprostol 200 MCG Tab PO PRN (20:44)
[2019-08-13] MEDS ORDERED: Tranexamic Acid 1,000 MG in Sodium Chloride 0.9% 100 ML IV PRN (20:44)
[2019-08-13] MEDS ORDERED: Nalbuphine 10 MG/1 ML Vial IVPUSH PRN (20:44)
[2019-08-13] MEDS ORDERED: Water For Irrigation,Sterile 1,000 ML Container IRR PRN (20:44)
[2019-08-13] MEDS ORDERED: Terbutaline 1 MG/ML SDV SUBCUT PRN (20:44)
[2019-08-13] MEDS ORDERED: Butorphanol 1 MG/ML SDV IVPUSH PRN (20:44)
[2019-08-13] MEDS ORDERED: Methylergonovine 0.2 MG/1 ML Amp IM PRN (20:44)
[2019-08-13] MEDS ORDERED: Misoprostol 25 MCG (1/4 of 100 MCG) Tab VAG PRN ×2 (20:44)
[2019-08-13] MEDS ORDERED: Sodium Chloride 0.9% 10 ML SDV IV PRN (20:44)
[2019-08-13] MEDS ORDERED: Oxytocin/0.9 % Sodium Chloride 30 UNIT/500 ML BAG IV SCH ×2 (20:45)
[2019-08-13] MEDS ORDERED: Lactated Ringers 1,000 ML IV SCH (20:45)
[2019-08-14] MEDS ORDERED: fentaNYL 100 MCG/2 ML SDV ONE ×2 (07:00→07:46)
[2019-08-14] MEDS ORDERED: Ropivacaine HCl/PF 100 ML ONE (07:00)
--- NOTE | 2019-08-14 07:35 | PCM.PREANE ---
Preanesthetic Assessment - Anesthesia/Transfusion/Family Hx Anesthesia History: Prior Anesthesia Without Reaction Family History of Anesthesia Reaction: No Transfusion History: No Prior Transfusion(s) - Physical Assessment NPO Status Date: 08/14/19 NPO Status Time: 02:00 Height: 1.7 m Weight: 103.147 kg ASA Class: 2 - Lab Values: Laboratory Last Values WBC 9.31 K/uL (4.0-11.0) 08/13/19 14:47 RBC 4.72 M/uL (4.30-5.90) 08/13/19 14:47 Hgb 11.5 g/dL (12.0-16.0) L 08/13/19 14:47 Hct 36.1 % (36.0-46.0) 08/13/19 14:47 MCV 76.5 fL (80.0-98.0) L 08/13/19 14:47 MCH 24.4 pg (27.0-32.0) L 08/13/19 14:47 MCHC 31.9 g/dL (31.0-37.0) 08/13/19 14:47 RDW Std Deviation 47.7 fl (28.0-62.0) 08/13/19 14:47 RDW Coeff of Verito 17 % (11.0-15.0) H 08/13/19 14:47 Plt Count 279 K/uL (150-400) 08/13/19 14:47 MPV 11.40 fL (7.40-12.00) 08/13/19 14:47 Nucleated RBC % 0.0 /100WBC 08/13/19 14:47 Nucleated RBCs # 0 K/uL 08/13/19 14:47 Sodium 138 mmol/L (136-145) 08/13/19 14:47 Potassium 4.2 mmol/L (3.5-5.1) 08/13/19 14:47 Chloride 106 mmol/L (98-107) 08/13/19 14:47 Carbon Dioxide 19.1 mmol/L (21.0-32.0) L 08/13/19 14:47 BUN 9 mg/dL (7.0-18.0) 08/13/19 14:47 Creatinine 0.6 mg/dL (0.6-1.0) 08/13/19 14:47 Est Cr Clr Drug Dosing TNP 08/13/19 14:47 Estimated GFR (MDRD) > 60.0 ml/min 08/13/19 14:47 Glucose 107 mg/dL (74-106) H 08/13/19 14:47 Uric Acid 4.5 mg/dL (2.6-7.2) 08/13/19 14:47 Calcium 8.2 mg/dL (8.5-10.1) L 08/13/19 14:47 Total Bilirubin 0.1 mg/dL (0.2-1.0) L 08/13/19 14:47 AST 13 IU/L (15-37) L 08/13/19 14:47 ALT 16 IU/L (14-63) 08/13/19 14:47 Alkaline Phosphatase 194 U/L (46-116) H 08/13/19 14:47 Total Protein 6.6 g/dL (6.4-8.2) 08/13/19 14:47 Albumin 2.8 g/dL (3.4-5.0) L 08/13/19 14:47 Globulin 3.8 g/dL (2.6-4.0) 08/13/19 14:47 Albumin/Globulin Ratio 0.7 (0.9-1.6) L 08/13/19 14:47 Blood Type O POSITIVE 08/13/19 21:10 Antibody Screen NEGATIVE 08/13/19 21:10 - Allergies Allergies/Adverse Reactions: Allergies Allergy/AdvReac Type Severity Reaction Status Date / Time No Known Allergies Allergy Verified 11/03/16 16:54 - Acknowledgements Anesthesia Type Planned: Epidural Pt an Appropriate Candidate for the Planned Anesthesia: Yes Alternatives and Risks of Anesthesia Discussed w Pt/Guardian: Yes Pt/Guardian Understands and Agrees with Anesthesia Plan: Yes PreAnesthesia Questionnaire - Past Health History Medical/Surgical History: Denies Medical/Surgical History HEENT History: Reports: Other (See Below) Other HEENT History: wears glasses Cardiovascular History: Reports: Hypertension [employer] History: Reports: - Past Surgical History HEENT Surgical History: Reports: None - SUBSTANCE USE Smoking Status *Q: Never Smoker Tobacco Use Within Last Twelve Months: No Second Hand Smoke Exposure: No Recreational Drug Use History: No - CURRENT (IN HOUSE) MEDS Current Meds: Current Medications Butorphanol Tartrate (Stadol) 1 mg IVPUSH ASDIRECTED PRN PRN Reason: Pain Carboprost Tromethamine (Hemabate Ds) 250 mcg IM ASDIRECTED PRN PRN Reason: Post Hemorrhage Lactated Ringer's (Ringers, Lactated) 1,000 mls @ 150 mls/hr IV ASDIRECTED JILL Last Admin: 08/14/19 03:35 Dose: 150 mls/hr Oxytocin/Sodium Chloride (Oxytocin 30 Unit/500 Ml-Ns) 30 unit in 500 mls @ 999 mls/hr IV TITRATE JILL Oxytocin/Sodium Chloride (Oxytocin 30 Unit/500 Ml-Ns) 30 unit in 500 mls @ 2 mls/hr IV TITRATE JILL; Protocol Last Titration: 08/14/19 05:09 Dose: 4 munits/min, 4 mls/hr Tranexamic Acid 1,000 mg/ (Sodium Chloride) 110 mls @ 660 mls/hr IV ONETIME PRN PRN Reason: Bleeding Lidocaine HCl (Xylocaine 1%) 50 ml INJECT ONETIME PRN PRN Reason: Laceration repair Methylergonovine Maleate (Methergine) 0.2 mg IM ASDIRECTED PRN PRN Reason: Post Hemorrhage Misoprostol (Cytotec) 200 mcg PO ONETIME PRN PRN Reason: Post Hemorrhage Misoprostol (Cytotec) 25 mcg VAG ONETIME PRN PRN Reason: Cervical Ripening Last Admin: 08/13/19 21:21 Dose: 25 mcg Misoprostol (Cytotec) 25 mcg VAG Q6H PRN PRN Reason: Cervical Ripening Nalbuphine HCl (Nubain) 10 mg IVPUSH ASDIRECTED PRN PRN Reason: Pain (severe 7-10) Ondansetron HCl (Zofran) 4 mg IVPUSH Q6H PRN PRN Reason: Nausea/Vomiting Sodium Chloride (Saline Flush) 10 ml FLUSH ASDIRECTED PRN PRN Reason: Keep Vein Open Sodium Chloride (Normal Saline) 10 ml IV ASDIRECTED PRN PRN Reason: IV Use Last Admin: 08/13/19 21:10 Dose: 10 ml Sterile Water (Sterile Water For Irrigation) 1,000 ml IRR ASDIRECTED PRN PRN Reason: delivery Terbutaline Sulfate (Brethine) 0.25 mg SUBCUT ASDIRECTED PRN PRN Reason: Tacysystole Discontinued Medications Fentanyl (Sublimaze) Confirm Administered Dose 100 mcg .ROUTE .STK-MED ONE Stop: 08/14/19 07:01 Ropivacaine (Naropin 0.2%) Confirm Administered Dose 100 mls @ as directed .ROUTE .STK-MED ONE Stop: 08/14/19 07:01
--- NOTE | 2019-08-14 07:40 | PCM.PRNOTE ---
- Free Text/Narrative Note: Anes NOte Patient requests epidural for L&D> Sitting position, level L3-L4. Sterile technique. Chloraprep to lumbar area. Sterile fenestrated drape applied. Epidural space achieved midline approach after several attempts. TAYLOR 15 5 cm. Cath threaded 5 cm with ease. Cath secured at skin at 11 cm ricci using sterile clear adhesive dressing. 0720 Test 3 cc 1.5% lido with epi negative. 0723 Load 10 cc 0.2% ropivicaine with 1 mcg cc fentanyl. 0726 Pump started wtih 90 cc of same solution. Rate is 8 cc hr with 6 cc q 20 min prn bolus. Time with patient [id number] Luis Angel Garcia CRNA
--- NOTE | 2019-08-14 07:52 | PCM.PRNOTE ---
- Free Text/Narrative Note: Analgesia is incomplete. Patinet is now complete and pushing. An epidural top up dose was administered. 6 cc 2% lido with epi plus 100 mcg fentanyl administered by epidural route. Time with patient [id number] Luis Angel Garcia CRNA
[2019-08-14] MEDS ORDERED: Benzocaine/Menthol 20%-0.5% Spray 78 GM Cannister TOP PRN (08:13)
[2019-08-14] MEDS ORDERED: oxyCODONE 5 MG Tab PO PRN (08:13)
[2019-08-14] MEDS ORDERED: Ibuprofen 400 MG Tab PO PRN (08:13)
[2019-08-14] MEDS ORDERED: Tranexamic Acid 1,000 MG in Sodium Chloride 0.9% 100 ML IV PRN (08:13)
[2019-08-14] MEDS ORDERED: Lanolin 100% Cream 7 GM Tube TOP PRN (08:13)
[2019-08-14] MEDS ORDERED: Acetaminophen 500 MG Tab PO PRN ×2 (08:13)
[2019-08-14] MEDS ORDERED: Witch Hazel Medicated Pads 40/Jar TOP PRN (08:13)
[2019-08-14] MEDS ORDERED: Bisacodyl 10 MG Supp RECTAL PRN (08:13)
[2019-08-14] MEDS ORDERED: Docusate Sodium 100 MG Cap PO PRN (08:13)
[2019-08-14] MEDS ORDERED: Ibuprofen 800 MG Tab PO PRN (08:13)
--- NOTE | 2019-08-14 08:17 | PCM.DEL ---
L & D Note - General Info Date of Service: 08/14/19 Mother's Due Date: 08/30/19 - Delivery Note Labor: Induced by Oxytocin Cervical Ripening Method: Misoprostil Delivery Outcome: Livebirth Infant Delivery Method: Spontaneous Vaginal Delivery-Single Presentation: Left Occiput Anterior (BRITNEY) Nuchal Cord: None Prep: Other Anesthesia Type: Epidural Amniotic Fluid Description: Clear Laceration: 2nd Degree Suture type: Vicryl Suture size: 3-0 Placenta: Intact, Spontaneous Cord: 3 Vessels Estimated Blood Loss: 200 Resuscitation Needed: No : Suctioned Score 1 min: 9 Score 5 min: 9 - General Info Date of Service: 08/14/19 - Patient Data Weight - Most Recent: 103.147 kg Lab Results Last 24 Hours: Laboratory Results - last 24 hr 08/13/19 08/13/19 08/13/19 Range/Units 14:47 14:47 21:10 WBC 9.31 (4.0-11.0) K/uL RBC 4.72 (4.30-5.90) M/uL Hgb 11.5 L (12.0-16.0) g/dL Hct 36.1 (36.0-46.0) % MCV 76.5 L (80.0-98.0) fL MCH 24.4 L (27.0-32.0) pg MCHC 31.9 (31.0-37.0) g/dL RDW Std Deviation 47.7 (28.0-62.0) fl RDW Coeff of Verito 17 H (11.0-15.0) % Plt Count 279 (150-400) K/uL MPV 11.40 (7.40-12.00) fL Nucleated RBC % 0.0 /100WBC Nucleated RBCs # 0 K/uL Sodium 138 (136-145) mmol/L Potassium 4.2 (3.5-5.1) mmol/L Chloride 106 (98-107) mmol/L Carbon Dioxide 19.1 L (21.0-32.0) mmol/L BUN 9 (7.0-18.0) mg/dL Creatinine 0.6 (0.6-1.0) mg/dL Est Cr Clr Drug Dosing TNP Estimated GFR (MDRD) > 60.0 ml/min Glucose 107 H (74-106) mg/dL Uric Acid 4.5 (2.6-7.2) mg/dL Calcium 8.2 L (8.5-10.1) mg/dL Total Bilirubin 0.1 L (0.2-1.0) mg/dL AST 13 L (15-37) IU/L ALT 16 (14-63) IU/L Alkaline Phosphatase 194 H (46-116) U/L Total Protein 6.6 (6.4-8.2) g/dL Albumin 2.8 L (3.4-5.0) g/dL Globulin 3.8 (2.6-4.0) g/dL Albumin/Globulin Ratio 0.7 L (0.9-1.6) Blood Type O POSITIVE Antibody Screen NEGATIVE Med Orders - Current: Current Medications Discontinued Medications Butorphanol Tartrate (Stadol) 1 mg IVPUSH ASDIRECTED PRN PRN Reason: Pain Last Admin: 08/14/19 07:44 Dose: 1 mg Carboprost Tromethamine (Hemabate Ds) 250 mcg IM ASDIRECTED PRN PRN Reason: Post Hemorrhage Fentanyl (Sublimaze) Confirm Administered Dose 100 mcg .ROUTE .STK-MED ONE Stop: 08/14/19 07:01 Fentanyl (Sublimaze) Confirm Administered Dose 100 mcg .ROUTE .STK-MED ONE Stop: 08/14/19 07:47 Lactated Ringer's (Ringers, Lactated) 1,000 mls @ 150 mls/hr IV ASDIRECTED JILL Last Admin: 08/14/19 03:35 Dose: 150 mls/hr Oxytocin/Sodium Chloride (Oxytocin 30 Unit/500 Ml-Ns) 30 unit in 500 mls @ 999 mls/hr IV TITRATE JILL Oxytocin/Sodium Chloride (Oxytocin 30 Unit/500 Ml-Ns) 30 unit in 500 mls @ 2 mls/hr IV TITRATE JILL; Protocol Last Titration: 08/14/19 05:09 Dose: 4 munits/min, 4 mls/hr Tranexamic Acid 1,000 mg/ (Sodium Chloride) 110 mls @ 660 mls/hr IV ONETIME PRN PRN Reason: Bleeding Ropivacaine (Naropin 0.2%) Confirm Administered Dose 100 mls @ as directed .ROUTE .STK-MED ONE Stop: 08/14/19 07:01 Lidocaine HCl (Xylocaine 1%) 50 ml INJECT ONETIME PRN PRN Reason: Laceration repair Methylergonovine Maleate (Methergine) 0.2 mg IM ASDIRECTED PRN PRN Reason: Post Hemorrhage Misoprostol (Cytotec) 200 mcg PO ONETIME PRN PRN Reason: Post Hemorrhage Misoprostol (Cytotec) 25 mcg VAG ONETIME PRN PRN Reason: Cervical Ripening Last Admin: 08/13/19 21:21 Dose: 25 mcg Misoprostol (Cytotec) 25 mcg VAG Q6H PRN PRN Reason: Cervical Ripening Nalbuphine HCl (Nubain) 10 mg IVPUSH ASDIRECTED PRN PRN Reason: Pain (severe 7-10) Ondansetron HCl (Zofran) 4 mg IVPUSH Q6H PRN PRN Reason: Nausea/Vomiting Sodium Chloride (Saline Flush) 10 ml FLUSH ASDIRECTED PRN PRN Reason: Keep Vein Open Sodium Chloride (Normal Saline) 10 ml IV ASDIRECTED PRN PRN Reason: IV Use Last Admin: 08/13/19 21:10 Dose: 10 ml Sterile Water (Sterile Water For Irrigation) 1,000 ml IRR ASDIRECTED PRN PRN Reason: delivery Terbutaline Sulfate (Brethine) 0.25 mg SUBCUT ASDIRECTED PRN PRN Reason: Tacysystole - Problem List & Annotations (1) Gestational hypertension SNOMED Code(s): 27345243 Code(s): O13.9 - GESTATIONAL HTN W/O SIGNIFICANT PROTEINURIA, UNSP TRIMESTER Status: Acute Priority: High Current Visit: No (2) (normal spontaneous vaginal delivery) SNOMED Code(s): 80032798, 878205875 Code(s): O80 - ENCOUNTER FOR FULL-TERM UNCOMPLICATED DELIVERY Status: Acute Priority: Medium Current Visit: No - Problem List Review Problem List Initiated/Reviewed/Updated: Yes - My Orders Last 24 Hours: My Active Orders 08/13/19 20:50 Bedrest Bathroom Privileges [RC] ASDIRECTED Communication Order [RC] ASDIRECTED Communication Order [RC] ASDIRECTED Communication Order [RC] ASDIRECTED Heart Tones [RC] CONTINUOUS Non Stress Test [RC] PER UNIT ROUTINE May Shower [RC] ASDIRECTED Notify Provider [RC] PRN Notify Provider [RC] PRN Notify Provider [RC] PRN Notify Provider [RC] STAT Oxygen Therapy [RC] ASDIRECTED Up ad Katia [RC] ASDIRECTED Vaginal Exam [RC] PRN Vaginal Exam [RC] PRN Vital Signs [RC] PER UNIT ROUTINE Vital Signs [RC] PER UNIT ROUTINE 08/13/19 21:10 RAPID PLASMA REAGIN, QUANT [REF] Routine 08/14/19 07:55 BLOOD GAS ARTERIAL UMBILICAL [BG] Urgent BLOOD GAS VENOUS UMBILICAL [BG] Urgent 08/14/19 08:13 Acetaminophen [Tylenol Extra Strength] 1,000 mg PO Q4H PRN Acetaminophen [Tylenol Extra Strength] 500 mg PO Q4H PRN Benzocaine/Menthol [Dermoplast Pain Relief 20%-0.5% [place]] 78 gm TOP ASDIRECTED PRN Bisacodyl [Dulcolax] 10 mg RECTAL ONETIME PRN Docusate Sodium [Colace] 100 mg PO BID PRN Ibuprofen [Motrin] 400 mg PO Q4H PRN Ibuprofen [Motrin] 800 mg PO Q6H PRN Lanolin [Lansinoh HPA] See Dose Instructions TOP ASDIRECTED PRN Tranexamic Acid [Cyklokapron] 1,000 mg Sodium Chloride 0.9% [Normal Saline] 100 ml IV ONETIME Witch Naila [Tucks] 1 pad TOP ASDIRECTED PRN oxyCODONE 5 mg PO Q2H PRN Resuscitation Status Routine 08/14/19 08:14 Patient Status [ADT] Routine May Shower [RC] ASDIRECTED Up ad Katia [RC] ASDIRECTED Vital Signs [RC] PER UNIT ROUTINE Assess Lochia [WOMSER] Per Unit Routine Assess Uterine Involution [WOMSER] Per Unit Routine Perineal Care [OM.PC] Per Unit Routine Peripheral IV Discontinue [OM.PC] Routine 08/14/19 Lunch Regular Diet [DIET] 08/15/19 05:11 HEMOGLOBIN/HEMATOCRIT,HH [HEME] Timed
--- NOTE | 2019-08-14 15:05 | OR ---
SURGEON: Annia Hernandez M.D. DATE OF PROCEDURE: 08/14/2019 PREOPERATIVE DIAGNOSES: A 37 and 4/7 weeks' intrauterine , gestational hypertension. POSTOPERATIVE DIAGNOSES: A 37 and 4/7 weeks' intrauterine , gestational hypertension. PROCEDURES: Cytotec and Pitocin induction of labor, term spontaneous vaginal delivery, repair of second-degree laceration. PRIMARY SURGEON: Annia Hernandez MD. ANESTHESIA: Epidural and local. ESTIMATED BLOOD LOSS: Less than 200 mL. FINDINGS: Liveborn male. scores 9 and 9. Weight is pending at the time of dictation. Placenta spontaneous, Salda[place], intact, with 3 vessels. Second-degree perineal laceration repaired. No periurethral, vaginal sidewall, cervical, or rectal lacerations. EBL was less than 200 mL. COMPLICATIONS: None known. DISPOSITION: Mother and baby are in LDR, in good condition. BRIEF HISTORY: This is a 23-year-old female, G2, P 1-0-0-1. She presented to clinic at 37 and 4/7 weeks' gestation with elevated blood pressures. We have been monitoring her blood pressures over the past month. She had received steroids for lung maturity approximately 3 weeks ago and previously had a headache, but on this day did not have headache or visual changes, but persistently elevated blood pressures in the clinic with 1+ protein, and therefore, decision was made to proceed with induction of labor. She agreed to proceed with the misoprostol induction, understanding this is FDA off-label category X with risk of hyperstimulation. She denies any history of asthma, and she received 2 doses of Cytotec followed by Pitocin. She received an epidural. The epidural did not work well, and it was very difficult to thread into the epidural space per Anesthesia, and she did not receive any significant pain relief with the epidural. However, I did check her, she was 6 to 7. I offered Stadol. She received Stadol and progressed rapidly to complete with category 1 heart tones. DESCRIPTION OF PROCEDURE: With the patient in dorsolithotomy position, the patient pushed over one contraction to a 5+ station, at which time, the head was delivered spontaneously and atraumatically over the perineum with support with subsequent delivery of the infant's shoulders and body without any difficulty. The infant was bulb suctioned by nose and mouth. Cord was clamped x2 and cut. The was handed to the mother in the presence of the nurse attending delivery. The was a liveborn male. scores 9 and 9. Weight is pending at the time of dictation. Cord blood was collected for cord ABGs, as well as routine cord blood sampling. Pitocin was initiated after delivery of the to assist with delivery of the placenta, which was delivered spontaneously, Saldaña intact, with 3 vessels. Upon inspection the pelvis and perineum, there was a second-degree perineal laceration, but no periurethral, vaginal sidewall, cervical, or rectal lacerations. 10 mL of 1% lidocaine was injected into the perineum. A 3-0 Vicryl was used to close the vaginal portion of the laceration with a running lock suture of 3-0 Vicryl with a deep running suture of the perineum for the same and a subcuticular suture of the same for the skin. Final sponge, needle, and instrument counts were correct. There were no known complications. Mother and baby remained in LDR in good condition. RON FRANCIS /[id number]
--- NOTE | 2019-08-15 07:16 | PCM48HPAN ---
Post Anesthesia Note - EVALUATION WITHIN 48HRS OF ANESTHETIC Vital Signs in Normal Range: Yes Patient Participated in Evaluation: Yes Respiratory Function Stable: Yes Airway Patent: Yes Cardiovascular Function Stable: Yes Hydration Status Stable: Yes Pain Control Satisfactory: Yes Nausea and Vomiting Control Satisfactory: Yes Mental Status Recovered: Yes Vital Signs: Last Vital Signs Temp 97 F 08/15/19 04:44 Pulse 75 08/15/19 04:44 Resp 16 08/15/19 04:44 BP 117/55 L 08/15/19 04:44 Pulse Ox 98 08/15/19 04:44
[2019-08-15 08:16] VITALS: BP 134/90; PULSE 72
--- NOTE | 2019-08-15 08:44 | PCM.PNPP ---
- General Info Date of Service: 08/15/19 Functional Status: Reports: Pain Controlled, Tolerating Diet, Ambulating, Urinating - Review of Systems General: Reports: No Symptoms HEENT: Reports: No Symptoms Pulmonary: Reports: No Symptoms Cardiovascular: Reports: No Symptoms Gastrointestinal: Reports: No Symptoms Genitourinary: Reports: No Symptoms Musculoskeletal: Reports: No Symptoms Skin: Reports: No Symptoms Neurological: Reports: No Symptoms Psychiatric: Reports: No Symptoms - General Info Date of Service: 08/15/19 - Patient Data Vital Signs - Most Recent: Last Vital Signs Temp 36.2 C 08/15/19 07:57 Pulse 72 08/15/19 07:57 Resp 18 08/15/19 07:57 BP 134/90 08/15/19 07:57 Pulse Ox 98 08/15/19 07:57 Weight - Most Recent: 103.147 kg Lab Results - Last 24 Hours: Laboratory Results - last 24 hr 08/14/19 08/15/19 Range/Units 07:49 06:15 Hgb 10.0 L (12.0-16.0) g/dL Hct 31.8 L (36.0-46.0) % Cord ABG pH 7.182 (7.18-7.38) Cord ABG Base Excess -9 (-10--2) Cord VBG pH 7.289 (7.25-7.45) Cord VBG Base Excess -7 (-10--2) Med Orders - Current: Current Medications Acetaminophen (Tylenol Extra Strength) 500 mg PO Q4H PRN PRN Reason: Pain Acetaminophen (Tylenol Extra Strength) 1,000 mg PO Q4H PRN PRN Reason: Pain Benzocaine/Menthol (Dermoplast Pain Relief 20%-0.5% [place]) 78 gm TOP ASDIRECTED PRN PRN Reason: Perineal Comfort Measure Last Admin: 08/14/19 12:36 Dose: 1 canister Bisacodyl (Dulcolax) 10 mg RECTAL ONETIME PRN PRN Reason: Constipation Docusate Sodium (Colace) 100 mg PO BID PRN PRN Reason: Constipation Emollient Ointment (Lansinoh Hpa) 0 gm TOP ASDIRECTED PRN PRN Reason: Sore Nipples Tranexamic Acid 1,000 mg/ (Sodium Chloride) 110 mls @ 660 mls/hr IV ONETIME PRN PRN Reason: Bleeding Ibuprofen (Motrin) 400 mg PO Q4H PRN PRN Reason: Pain Ibuprofen (Motrin) 800 mg PO Q6H PRN PRN Reason: Pain Last Admin: 08/14/19 16:50 Dose: 800 mg Oxycodone HCl (Oxycodone) 5 mg PO Q2H PRN PRN Reason: Pain Witch Naila (Tucks) 1 pad TOP ASDIRECTED PRN PRN Reason: comfort care Last Admin: 08/14/19 12:37 Dose: 1 container Discontinued Medications Butorphanol Tartrate (Stadol) 1 mg IVPUSH ASDIRECTED PRN PRN Reason: Pain Last Admin: 08/14/19 07:44 Dose: 1 mg Carboprost Tromethamine (Hemabate Ds) 250 mcg IM ASDIRECTED PRN PRN Reason: Post Hemorrhage Fentanyl (Sublimaze) Confirm Administered Dose 100 mcg .ROUTE .STK-MED ONE Stop: 08/14/19 07:01 Fentanyl (Sublimaze) Confirm Administered Dose 100 mcg .ROUTE .STK-MED ONE Stop: 08/14/19 07:47 Lactated Ringer's (Ringers, Lactated) 1,000 mls @ 150 mls/hr IV ASDIRECTED JILL Last Admin: 08/14/19 03:35 Dose: 150 mls/hr Oxytocin/Sodium Chloride (Oxytocin 30 Unit/500 Ml-Ns) 30 unit in 500 mls @ 999 mls/hr IV TITRATE JILL Oxytocin/Sodium Chloride (Oxytocin 30 Unit/500 Ml-Ns) 30 unit in 500 mls @ 2 mls/hr IV TITRATE JILL; Protocol Last Titration: 08/14/19 05:09 Dose: 4 munits/min, 4 mls/hr Tranexamic Acid 1,000 mg/ (Sodium Chloride) 110 mls @ 660 mls/hr IV ONETIME PRN PRN Reason: Bleeding Ropivacaine (Naropin 0.2%) Confirm Administered Dose 100 mls @ as directed .ROUTE .STK-MED ONE Stop: 08/14/19 07:01 Lidocaine HCl (Xylocaine 1%) 50 ml INJECT ONETIME PRN PRN Reason: Laceration repair Last Admin: 08/14/19 08:05 Dose: 50 ml Methylergonovine Maleate (Methergine) 0.2 mg IM ASDIRECTED PRN PRN Reason: Post Hemorrhage Misoprostol (Cytotec) 200 mcg PO ONETIME PRN PRN Reason: Post Hemorrhage Misoprostol (Cytotec) 25 mcg VAG ONETIME PRN PRN Reason: Cervical Ripening Last Admin: 08/13/19 21:21 Dose: 25 mcg Misoprostol (Cytotec) 25 mcg VAG Q6H PRN PRN Reason: Cervical Ripening Nalbuphine HCl (Nubain) 10 mg IVPUSH ASDIRECTED PRN PRN Reason: Pain (severe 7-10) Ondansetron HCl (Zofran) 4 mg IVPUSH Q6H PRN PRN Reason: Nausea/Vomiting Sodium Chloride (Saline Flush) 10 ml FLUSH ASDIRECTED PRN PRN Reason: Keep Vein Open Sodium Chloride (Normal Saline) 10 ml IV ASDIRECTED PRN PRN Reason: IV Use Last Admin: 08/13/19 21:10 Dose: 10 ml Sterile Water (Sterile Water For Irrigation) 1,000 ml IRR ASDIRECTED PRN PRN Reason: delivery Terbutaline Sulfate (Brethine) 0.25 mg SUBCUT ASDIRECTED PRN PRN Reason: Tacysystole - Interaction Disposition, : in Room with Family Interaction: Holding Infant Infant Feeding: Breastfed Infant; Nursed Well Support Person: , Mother - Recovery Exam Fundal Level: 2 Fingerbreadths Below Umbilicus Fundal Placement: Midline Lochia Amount: Small Lochia Color: Rubra/Red - Exam General: Alert, Oriented HEENT: Pupils Equal Neck: Supple Lungs: Normal Respiratory Effort GI/Abdominal Exam: Soft, Non-Tender, No Organomegaly, No Distention Extremities: Normal Inspection, Non-Tender, No Pedal Edema Skin: Warm, Dry, Intact Neurological: No New Focal Deficit Psy/Mental Status: Alert, Normal Affect, Normal Mood - Problem List & Annotations (1) Gestational hypertension SNOMED Code(s): 61026022 Code(s): O13.9 - GESTATIONAL HTN W/O SIGNIFICANT PROTEINURIA, UNSP TRIMESTER Status: Acute Priority: High Current Visit: No (2) (normal spontaneous vaginal delivery) SNOMED Code(s): 76027491, 964497783 Code(s): O80 - ENCOUNTER FOR FULL-TERM UNCOMPLICATED DELIVERY Status: Acute Priority: Medium Current Visit: No - Problem List Review Problem List Initiated/Reviewed/Updated: Yes - My Orders Last 24 Hours: My Active Orders 08/14/19 08:13 Acetaminophen [Tylenol Extra Strength] 1,000 mg PO Q4H PRN Acetaminophen [Tylenol Extra Strength] 500 mg PO Q4H PRN Benzocaine/Menthol [Dermoplast Pain Relief 20%-0.5% [place]] 78 gm TOP ASDIRECTED PRN Bisacodyl [Dulcolax] 10 mg RECTAL ONETIME PRN Docusate Sodium [Colace] 100 mg PO BID PRN Ibuprofen [Motrin] 400 mg PO Q4H PRN Ibuprofen [Motrin] 800 mg PO Q6H PRN Lanolin [Lansinoh HPA] See Dose Instructions TOP ASDIRECTED PRN Tranexamic Acid [Cyklokapron] 1,000 mg Sodium Chloride 0.9% [Normal Saline] 100 ml IV ONETIME Witch Anila [Tucks] 1 pad TOP ASDIRECTED PRN oxyCODONE 5 mg PO Q2H PRN Resuscitation Status Routine 08/14/19 08:14 Patient Status [ADT] Routine May Shower [RC] ASDIRECTED Up ad Katia [RC] ASDIRECTED Vital Signs [RC] PER UNIT ROUTINE Assess Lochia [WOMSER] Per Unit Routine Assess Uterine Involution [WOMSER] Per Unit Routine Perineal Care [OM.PC] Per Unit Routine Peripheral IV Discontinue [OM.PC] Routine - Assessment Assessment:: PPD#1 after for gestational hypertension. Blood pressures much improved since delivery, pain well controlled, minimal lochia, would like to go home. - Plan Plan:: Dismiss to home. Discharge instructions reviewed.
== END 2019-08-15 15:10 | disposition home or self-care (01) | DRG 560 ==
LOC: MW.NPGPWH 14:47 → MW.OB 20:20 → OBSVTOIN 08-14 07:49 → MW.OB 08-14 14:54
PROVIDERS: ADMIT Obstetrics & Gynecology; ATTEND Obstetrics & Gynecology
PROC: 10E0XZZ Delivery of Products of Conception, External Approach (ICD-10-PCS; principal; 2019-08-14)
PROC: 10907ZC Drainage of Amniotic Fluid, Therapeutic from Products of Conception, Via Natural or Artificial Opening (ICD-10-PCS; 2019-08-14)
PROC: 3E033VJ Introduction of Other Hormone into Peripheral Vein, Percutaneous Approach (ICD-10-PCS; 2019-08-14)
PROC: 0KQM0ZZ Repair Perineum Muscle, Open Approach (ICD-10-PCS; 2019-08-14)
PROC: 3E0R3BZ Introduction of Anesthetic Agent into Spinal Canal, Percutaneous Approach (ICD-10-PCS; 2019-08-14)
PROC: 00HU33Z Insertion of Infusion Device into Spinal Canal, Percutaneous Approach (ICD-10-PCS; 2019-08-14)
DX: O13.4 Gestational [pregnancy-induced] hypertension without significant proteinuria, complicating childbirth (principal); O70.1 Second degree perineal laceration during delivery; Z3A.37 37 weeks gestation of pregnancy; Z37.0 Single live birth; Z79.899 Other long term (current) drug therapy
CPT/HCPCS: 36415; 59025; 59409; 80053; 82803; 84550; 85014; 85018; 85027; 86593; 86850; 86900; 86901; A9270-GY; J0595; J2001; J2590; J2795; J3010; J7050; J7120